=== PATIENT | female | born 1955 | race Caucasian/White ===

== ENCOUNTER 2024-06-15 09:32 | Emergency (ER) | payer MEDICARE ==
[~2024-06-15] VITALS: Ht 162.6 cm; Wt 63.5 kg
[2024-06-15] MEDS ORDERED: ACETAMINOPHEN 325 MG/TAB PO ONE (11:45)
[2024-06-15] MEDS ORDERED: IBUPROFEN 200 MG/TAB PO ONE (11:45)
[2024-06-15 11:58] VITALS: BP 136/74
== END 2024-06-15 12:17 | disposition home or self-care (01) ==
LOC: ED 09:32
DX: M79.641 Pain in right hand (principal)